=== PATIENT | female | born 1970 | race Caucasian/White ===

== ENCOUNTER 2020-05-17 20:50 | Emergency (ER) | payer BC ==
[2020-05-17] MEDS ORDERED: Ketorolac Tromethamine 30 MG/ML VIAL ONE (21:59)
[2020-05-17] MEDS ORDERED: diphenhydrAMINE 50 MG/ML VIAL ONE (21:59)
[2020-05-17] MEDS ORDERED: Prochlorperazine 10 MG/2 ML VIAL IVP SCH (22:00)
== END 2020-05-17 23:12 | disposition home or self-care (01) ==
LOC: ERS 20:50
DX: U07.1 COVID-19 (principal)
CPT/HCPCS: 96365; 96375; J0780; J1200; J1885